=== PATIENT | male | born 1980 | race Hispanic/Latino ===

== ENCOUNTER 2021-06-05 14:23 | Inpatient (IN) | payer SELFPAY ==
[2021-06-05 15:26] LABS: Bilirubin Negative (Negative); Blood, Urine Negative (Negative); Clarity Clear (Clear); Glucose, Urine (Dipstick) Normal (Negative); Ketone, Urine Negative (Negative); Leukocyte Negative Leu/uL (Negative); Nitrite Negative (Negative); Protein, Urine (Dipstick) Negative (Neg-Trace); Urobilinogen Normal mg/dL (Less than 2); pH, Urine 6.5 (5.0-9.0)
[2021-06-05 15:36] LABS: Amphetamine Not Detected (NotDetected); Barbiturates Screen Not Detected (NotDetected); Benzodiazepine Screen Not Detected (NotDetected); Cocaine Metabolite Screen Not Detected (NotDetected); Methadone Not Detected (NotDetected); Methamphetamine Not Detected (NotDetected); Opiate Screen Not Detected (NotDetected); Oxycodone Screen Not Detected (NotDetected); Phencyclidine (PCP) Not Detected (NotDetected); THC/Cannabinoid Screen Not Detected (NotDetected); Tricyclic Screen Not Detected (NotDetected)
[2021-06-05 15:53] LABS: #Basophils 0.1 thou/uL (0.0-0.2); #Eosinphils 0.1 thou/uL (0.0-0.7); #Lymphocytes 2.6 thou/uL (1.20-3.40); #Neutrophils 7.4 thou/uL (1.40-6.50); %Basophils 0.6 % (0.0-1.0); %Eosinophils 0.7 % (0.0-10.0); %Lymphocytes 23.2 % (21.0-51.0); %Monocytes 9.3 % (0.0-10.0); %Neutrophils 66.3 % (42.0-75.0); Hemoglobin 13.8 g/dL (14.0-18.0); Mean Corpuscular HGB CONC 33.9 g/dL (32.0-36.0); Mean Corpuscular Hemoglobin 28.2 pg (27.0-31.0); Mean Corpuscular Volume 83.2 fL (78.0-98.0); Mean Platelet Volume 7.9 fL (7.4-10.4); Platelet Count 290 thou/uL (130-400); Red Blood Cell (RBC) Count 4.89 mill/uL (4.70-6.10); White Blood Cell (WBC) Count 11.1 thou/uL (4.8-10.8)
[2021-06-05] MEDS ORDERED: Lorazepam 1 MG TAB ONE (16:07)
[2021-06-05 16:24] LABS: ALT (SGPT) 23 U/L (8-55); AST (SGOT) 23 U/L (5-34); Acetaminophen Less than 6.0 mcg/mL (10.0-30.0); Alcohol 90 mg/dL (Less than 10); Alkaline Phosphatase 59 U/L (40-110); Anion Gap 16 mmol/L (10-20); BUN (Urea Nitrogen) 10 mg/dL (8.9-20.6); Bilirubin, Total 0.5 mg/dL (0.2-1.2); Calc. Creatinine Clearance 0 mL/min (70-130); Calcium 9.2 mg/dL (7.8-10.44); Carbon Dioxide 25 mmol/L (22-29); Chloride 101 mmol/L (98-107); Globulin 3.5 g/dL (2.4-3.5); Glucose 91 mg/dL (70-105); Potassium 3.8 mmol/L (3.5-5.1); Protein, Total 7.5 g/dL (6.0-8.3); Salicylate Less than 8.0 mg/dL (15.0-30.0); Sodium 138 mmol/L (136-145)
[2021-06-05 18:11] LABS: SARS-CoV-2 NAA Rapid Test DETECTED (NotDetected)
[2021-06-05] MEDS ORDERED: Diazepam 10 MG/2 ML SYRINGE ONE (18:22)
[2021-06-05] MEDS ORDERED: Lorazepam 2 MG/ML VIAL IVPB PRN (18:38)
[2021-06-05] MEDS ORDERED: Ondansetron ODT 4 MG TAB PO PRN (18:38)
[2021-06-05] MEDS ORDERED: Acetaminophen 325 MG TAB PO PRN (18:38)
[2021-06-05] MEDS ORDERED: Lorazepam 1 MG TAB PO PRN (18:38)
[2021-06-05] MEDS ORDERED: Ondansetron PF 4 MG/2 ML Vial IVP PRN (18:38)
[2021-06-05] MEDS ORDERED: Electrolyte Replacement Protocol 1 EACH FS SCH (18:45)
[2021-06-05 23:01] VITALS: BMI 30.9
[2021-06-05] MEDS: Thiamine HCl 200 MG/2 ML VIAL SLOW IVP SCH (23:46)
[2021-06-05] MEDS: Lorazepam 1 MG TAB PO SCH (23:46)
[2021-06-05] MEDS: Famotidine 20 MG TAB PO SCH (23:46)
[2021-06-06] MEDS: Lorazepam 1 MG TAB PO SCH ×4 (05:53→20:11)
[2021-06-06 06:00] LABS: #Basophils 0.1 thou/uL (0.0-0.2); #Eosinphils 0.2 thou/uL (0.0-0.7); #Lymphocytes 2.5 thou/uL (1.20-3.40); #Monocytes 0.8 thou/uL (0.11-0.59); #Neutrophils 4.9 thou/uL (1.40-6.50); %Basophils 0.8 % (0.0-1.0); %Lymphocytes 29.7 % (21.0-51.0); %Monocytes 9.1 % (0.0-10.0); %Neutrophils 58.4 % (42.0-75.0); Hemoglobin 13.6 g/dL (14.0-18.0); Mean Corpuscular HGB CONC 32.1 g/dL (32.0-36.0); Mean Corpuscular Hemoglobin 27.2 pg (27.0-31.0); Mean Corpuscular Volume 84.8 fL (78.0-98.0); Mean Platelet Volume 8.2 fL (7.4-10.4); Platelet Count 272 thou/uL (130-400); RBC Distribution Width 13.2 % (11.5-14.5); Red Blood Cell (RBC) Count 5.01 mill/uL (4.70-6.10); White Blood Cell (WBC) Count 8.4 thou/uL (4.8-10.8)
[2021-06-06 06:04] LABS: Hemoglobin A1c 5.5 % (4.0-6.0)
[2021-06-06 06:29] LABS: ALT (SGPT) 29 U/L (8-55); AST (SGOT) 28 U/L (5-34); Alkaline Phosphatase 56 U/L (40-110); Anion Gap 14 mmol/L (10-20); BUN (Urea Nitrogen) 13 mg/dL (8.9-20.6); Bilirubin, Total 0.8 mg/dL (0.2-1.2); Calc. Creatinine Clearance 149 mL/min (70-130); Calcium 9.5 mg/dL (7.8-10.44); Carbon Dioxide 28 mmol/L (22-29); Cardiac Risk 2.7 (Less than 4.5); Chloride 101 mmol/L (98-107); Cholesterol 207 mg/dl (< 200 Desired); Globulin 3.3 g/dL (2.4-3.5); Glucose 104 mg/dL (70-105); HDL Cholesterol 78 mg/dL (>60 Neg Risk); LDL Cholesterol, Calculated 107 mg/dL; Magnesium 1.9 mg/dL (1.6-2.6); Phosphorus 3.8 mg/dL (2.3-4.7); Potassium 4.5 mmol/L (3.5-5.1); Protein, Total 7.3 g/dL (6.0-8.3); Sodium 138 mmol/L (136-145); Triglycerides 110 mg/dL (Less than 150)
[2021-06-06 06:42] LABS: Syphilis Antibody Nonreactive (Nonreactive); Syphilis Antibody Index 0.05 S/CO (<1.00 Non-Reactive)
[2021-06-06 06:43] LABS: Hep C IgG Ab Non-Reactive (NonReactive); Hep C Index 0.07 S/CO (0-0.79); Thyroid Stimulating Hormone 1.7677 uIU/mL (0.35-4.94)
[2021-06-06] MEDS ORDERED: Potassium Chloride 20 MEQ TAB PO SCH (06:45)
[2021-06-06] MEDS ORDERED: Magnesium 2 GM/50 ML 2 GM in Premix Bag 1 BAG IVPB SCH (07:00)
[2021-06-06] MEDS: Multivit, Therapeutic 1 TAB PO SCH (08:59)
[2021-06-06] MEDS: Folic Acid 1 MG TAB PO SCH (08:59)
[2021-06-06] MEDS: Gabapentin 300 MG CAP PO SCH ×3 (08:59→20:12)
[2021-06-06] MEDS: Famotidine 20 MG TAB PO SCH ×2 (08:59→20:11)
[2021-06-06] MEDS ORDERED: Lorazepam 1 MG TAB PO PRN (18:40)
[2021-06-06] MEDS: Thiamine HCl 200 MG/2 ML VIAL SLOW IVP SCH (20:24)
[2021-06-07] MEDS: Lorazepam 1 MG TAB PO SCH ×2 (02:57→09:05)
[2021-06-07 04:53] LABS: #Basophils 0.1 thou/uL (0.0-0.2); #Eosinphils 0.2 thou/uL (0.0-0.7); #Lymphocytes 2.6 thou/uL (1.20-3.40); #Monocytes 0.8 thou/uL (0.11-0.59); #Neutrophils 4.9 thou/uL (1.40-6.50); %Basophils 0.9 % (0.0-1.0); %Eosinophils 2.2 % (0.0-10.0); %Lymphocytes 30.2 % (21.0-51.0); %Monocytes 8.9 % (0.0-10.0); %Neutrophils 57.8 % (42.0-75.0); Hemoglobin 13.6 g/dL (14.0-18.0); Mean Corpuscular HGB CONC 33.9 g/dL (32.0-36.0); Mean Corpuscular Hemoglobin 28.3 pg (27.0-31.0); Mean Corpuscular Volume 83.6 fL (78.0-98.0); Platelet Count 271 thou/uL (130-400); RBC Distribution Width 13.1 % (11.5-14.5); Red Blood Cell (RBC) Count 4.81 mill/uL (4.70-6.10); White Blood Cell (WBC) Count 8.5 thou/uL (4.8-10.8)
[2021-06-07 05:16] LABS: ALT (SGPT) 57 U/L (8-55); AST (SGOT) 56 U/L (5-34); Albumin 3.8 g/dL (3.5-5.0); Alkaline Phosphatase 59 U/L (40-110); Anion Gap 11 mmol/L (10-20); BUN (Urea Nitrogen) 14 mg/dL (8.9-20.6); Bilirubin, Total 0.5 mg/dL (0.2-1.2); Calc. Creatinine Clearance 141 mL/min (70-130); Calcium 8.9 mg/dL (7.8-10.44); Carbon Dioxide 27 mmol/L (22-29); Chloride 102 mmol/L (98-107); Globulin 3.1 g/dL (2.4-3.5); Glucose 104 mg/dL (70-105); Magnesium 2.2 mg/dL (1.6-2.6); Phosphorus 4.4 mg/dL (2.3-4.7); Potassium 4.3 mmol/L (3.5-5.1); Protein, Total 6.9 g/dL (6.0-8.3); Sodium 136 mmol/L (136-145)
[2021-06-07 05:36] LABS: HIV (1/2) Antibody/Antigen Non-Reactive (NonReactive); HIV 1/2 INDEX 0.09 S/CO (<1.00)
[2021-06-07] MEDS: Multivit, Therapeutic 1 TAB PO SCH (09:00)
[2021-06-07] MEDS: Folic Acid 1 MG TAB PO SCH (09:00)
[2021-06-07] MEDS: Gabapentin 300 MG CAP PO SCH ×3 (09:00→21:42)
[2021-06-07] MEDS: Famotidine 20 MG TAB PO SCH ×2 (09:00→21:36)
[2021-06-07] MEDS ORDERED: FLU VACC QS2021-22(6MOS UP)/PF 60 MCG/0.5 ML SYRINGE IM ONE (09:00)
[2021-06-07] MEDS: chlordiazePOXIDE HCl 25 MG CAP PO SCH ×3 (13:17→21:36)
[2021-06-07] MEDS ORDERED: Lorazepam 1 MG TAB PO PRN (18:40)
[2021-06-07] MEDS ORDERED: Lorazepam 0.5 MG TAB PO SCH (20:00)
[2021-06-07] MEDS ORDERED: Melatonin 3 MG TAB PO SCH (21:00)
[2021-06-07] MEDS: Thiamine HCl 200 MG/2 ML VIAL SLOW IVP SCH (21:36)
[2021-06-08 06:07] LABS: #Basophils 0.1 thou/uL (0.0-0.2); #Eosinphils 0.2 thou/uL (0.0-0.7); #Lymphocytes 2.7 thou/uL (1.20-3.40); #Monocytes 0.8 thou/uL (0.11-0.59); #Neutrophils 4.7 thou/uL (1.40-6.50); %Basophils 1.5 % (0.0-1.0); %Eosinophils 2.4 % (0.0-10.0); %Lymphocytes 31.4 % (21.0-51.0); %Neutrophils 55.6 % (42.0-75.0); Hemoglobin 13.6 g/dL (14.0-18.0); Mean Corpuscular HGB CONC 31.8 g/dL (32.0-36.0); Mean Corpuscular Hemoglobin 27.3 pg (27.0-31.0); Mean Corpuscular Volume 85.6 fL (78.0-98.0); Mean Platelet Volume 7.9 fL (7.4-10.4); Platelet Count 278 thou/uL (130-400); RBC Distribution Width 13.4 % (11.5-14.5); Red Blood Cell (RBC) Count 4.98 mill/uL (4.70-6.10); White Blood Cell (WBC) Count 8.5 thou/uL (4.8-10.8)
[2021-06-08 06:25] LABS: ALT (SGPT) 84 U/L (8-55); AST (SGOT) 64 U/L (5-34); Albumin 3.9 g/dL (3.5-5.0); Alkaline Phosphatase 53 U/L (40-110); Anion Gap 12 mmol/L (10-20); BUN (Urea Nitrogen) 16 mg/dL (8.9-20.6); Bilirubin, Total 0.5 mg/dL (0.2-1.2); Calc. Creatinine Clearance 132 mL/min (70-130); Carbon Dioxide 27 mmol/L (22-29); Chloride 105 mmol/L (98-107); Glucose 105 mg/dL (70-105); Magnesium 2.2 mg/dL (1.6-2.6); Phosphorus 4.8 mg/dL (2.3-4.7); Potassium 4.5 mmol/L (3.5-5.1); Protein, Total 6.9 g/dL (6.0-8.3); Sodium 139 mmol/L (136-145)
[2021-06-08 08:16] LABS: INR-International Normal Ratio 0.9; PTT 31.4 sec (22.9-36.1); Prothrombin Time 12.5 sec (12.0-14.7)
[2021-06-08] MEDS ORDERED: FLU VACC QS2021-22(6MOS UP)/PF 60 MCG/0.5 ML SYRINGE IM ONE (09:00)
[2021-06-08 09:17] LABS: HBCM Index 0.08 S/CO (0-0.79); Hep B Core Total Ab Non-Reactive (NonReactive); Hep B Surf Ag Non-Reactive S/CO (NonReactive); Hepatitis B Core IgM Abs Non-Reactive (NonReactive)
[2021-06-08] MEDS: Multivit, Therapeutic 1 TAB PO SCH (09:55)
[2021-06-08] MEDS: Famotidine 20 MG TAB PO SCH (09:55)
[2021-06-08] MEDS: Folic Acid 1 MG TAB PO SCH (09:55)
[2021-06-08] MEDS: Gabapentin 300 MG CAP PO SCH ×3 (09:55→21:35)
[2021-06-08] MEDS: Thiamine 100 MG TAB PO SCH (09:55)
[2021-06-08 10:09] LABS: HBSAB Concentration 2086.24 mIU/mL; Hep B Surf AB Reactive (NonReactive)
[2021-06-08] MEDS: chlordiazePOXIDE HCl 25 MG CAP PO SCH ×4 (10:15→22:00)
[2021-06-08 10:16] LABS: Hep B Surface AG-Rflx Sendout Negative (Negative); Hepatitis B Core Total Negative (Negative); Hepatitis B Surface AB-Sendout Reactive (.)
[2021-06-08] MEDS ORDERED: Lorazepam 1 MG TAB PO SCH (16:15)
[2021-06-08] MEDS ORDERED: Lorazepam 0.5 MG TAB PO PRN (18:40)
[2021-06-08] MEDS: Melatonin 3 MG TAB PO SCH (21:36)
[2021-06-09 06:16] LABS: #Basophils 0.1 thou/uL (0.0-0.2); #Eosinphils 0.3 thou/uL (0.0-0.7); #Lymphocytes 2.8 thou/uL (1.20-3.40); #Monocytes 0.9 thou/uL (0.11-0.59); #Neutrophils 4.9 thou/uL (1.40-6.50); %Basophils 1.1 % (0.0-1.0); %Eosinophils 3.4 % (0.0-10.0); %Lymphocytes 30.6 % (21.0-51.0); %Neutrophils 54.9 % (42.0-75.0); Hemoglobin 13.6 g/dL (14.0-18.0); Mean Corpuscular HGB CONC 32.7 g/dL (32.0-36.0); Mean Corpuscular Hemoglobin 27.8 pg (27.0-31.0); Mean Corpuscular Volume 85.1 fL (78.0-98.0); Mean Platelet Volume 8.1 fL (7.4-10.4); Platelet Count 290 thou/uL (130-400); RBC Distribution Width 13.4 % (11.5-14.5)
[2021-06-09 07:07] LABS: ALT (SGPT) 97 U/L (8-55); AST (SGOT) 60 U/L (5-34); Albumin 3.9 g/dL (3.5-5.0); Alkaline Phosphatase 50 U/L (40-110); Anion Gap 14 mmol/L (10-20); BUN (Urea Nitrogen) 18 mg/dL (8.9-20.6); Bilirubin, Total 0.4 mg/dL (0.2-1.2); Calc. Creatinine Clearance 128 mL/min (70-130); Calcium 9.1 mg/dL (7.8-10.44); Carbon Dioxide 22 mmol/L (22-29); Chloride 104 mmol/L (98-107); Globulin 3.1 g/dL (2.4-3.5); Glucose 104 mg/dL (70-105); Magnesium 2.2 mg/dL (1.6-2.6); Phosphorus 4.7 mg/dL (2.3-4.7); Potassium 4.4 mmol/L (3.5-5.1); Sodium 136 mmol/L (136-145)
[2021-06-09] MEDS: Gabapentin 300 MG CAP PO SCH ×3 (08:13→21:43)
[2021-06-09] MEDS: Multivit, Therapeutic 1 TAB PO SCH (08:13)
[2021-06-09] MEDS: Folic Acid 1 MG TAB PO SCH (08:13)
[2021-06-09] MEDS: hydrOXYzine 25 MG TAB PO PRN (08:13)
[2021-06-09] MEDS: Lactated Ringer's 1,000 ML IV SCH ×2 (08:14→16:30)
[2021-06-09] MEDS: Thiamine 100 MG TAB PO SCH (08:14)
[2021-06-09] MEDS ORDERED: Polyethylene Glycol 3350 17 GM Packet PO PRN (08:52)
[2021-06-09] MEDS: chlordiazePOXIDE HCl 25 MG CAP PO SCH ×4 (09:44→21:43)
[2021-06-09] MEDS: Senokot S 8.6-50 MG TAB PO SCH ×2 (09:48→21:45)
[2021-06-09] MEDS: OLANZapine 5 MG TAB PO SCH (10:50)
[2021-06-09] MEDS: Melatonin 3 MG TAB PO SCH (21:44)
[2021-06-10] MEDS: Lactated Ringer's 1,000 ML IV SCH ×2 (00:40→10:21)
[2021-06-10 05:47] LABS: #Basophils 0.1 thou/uL (0.0-0.2); #Eosinphils 0.2 thou/uL (0.0-0.7); #Lymphocytes 2.6 thou/uL (1.20-3.40); #Monocytes 0.7 thou/uL (0.11-0.59); #Neutrophils 4.9 thou/uL (1.40-6.50); %Basophils 1.2 % (0.0-1.0); %Eosinophils 2.2 % (0.0-10.0); %Lymphocytes 30.6 % (21.0-51.0); %Monocytes 8.7 % (0.0-10.0); %Neutrophils 57.2 % (42.0-75.0); Hemoglobin 13.9 g/dL (14.0-18.0); Mean Corpuscular HGB CONC 32.3 g/dL (32.0-36.0); Mean Corpuscular Hemoglobin 27.6 pg (27.0-31.0); Mean Corpuscular Volume 85.3 fL (78.0-98.0); Platelet Count 306 thou/uL (130-400); RBC Distribution Width 13.6 % (11.5-14.5); Red Blood Cell (RBC) Count 5.06 mill/uL (4.70-6.10); White Blood Cell (WBC) Count 8.6 thou/uL (4.8-10.8)
[2021-06-10 06:08] LABS: ALT (SGPT) 100 U/L (8-55); AST (SGOT) 50 U/L (5-34); Albumin 3.8 g/dL (3.5-5.0); Alkaline Phosphatase 52 U/L (40-110); Anion Gap 12 mmol/L (10-20); BUN (Urea Nitrogen) 19 mg/dL (8.9-20.6); Bilirubin, Total 0.3 mg/dL (0.2-1.2); Calc. Creatinine Clearance 141 mL/min (70-130); Calcium 9.4 mg/dL (7.8-10.44); Carbon Dioxide 23 mmol/L (22-29); Chloride 106 mmol/L (98-107); Globulin 3.1 g/dL (2.4-3.5); Glucose 111 mg/dL (70-105); Iron 45 ug/dL (65-175); Iron 46 ug/dL (65-175); Iron Binding Capacity, Total 311 mcg/dL (261-462); Iron Binding Capacity, Total 320 mcg/dL (261-462); Magnesium 2.1 mg/dL (1.6-2.6); Phosphorus 4.5 mg/dL (2.3-4.7); Potassium 4.3 mmol/L (3.5-5.1); Protein, Total 6.9 g/dL (6.0-8.3); Sodium 137 mmol/L (136-145)
[2021-06-10] MEDS: Gabapentin 300 MG CAP PO SCH ×3 (10:17→20:45)
[2021-06-10] MEDS: Multivit, Therapeutic 1 TAB PO SCH (10:17)
[2021-06-10] MEDS: Folic Acid 1 MG TAB PO SCH (10:17)
[2021-06-10] MEDS: Senokot S 8.6-50 MG TAB PO SCH ×2 (10:17→20:45)
[2021-06-10] MEDS: OLANZapine 5 MG TAB PO SCH (10:18)
[2021-06-10] MEDS: Thiamine 100 MG TAB PO SCH (10:21)
[2021-06-10] MEDS: chlordiazePOXIDE HCl 25 MG CAP PO SCH ×2 (10:21→14:10)
[2021-06-10] MEDS: Melatonin 3 MG TAB PO SCH (23:57)
[2021-06-11 06:39] LABS: #Basophils 0.1 thou/uL (0.0-0.2); #Eosinphils 0.2 thou/uL (0.0-0.7); #Lymphocytes 2.3 thou/uL (1.20-3.40); #Monocytes 0.9 thou/uL (0.11-0.59); #Neutrophils 4.3 thou/uL (1.40-6.50); %Basophils 0.9 % (0.0-1.0); %Eosinophils 2.2 % (0.0-10.0); %Lymphocytes 29.5 % (21.0-51.0); %Monocytes 11.7 % (0.0-10.0); %Neutrophils 55.7 % (42.0-75.0); Mean Corpuscular HGB CONC 32.6 g/dL (32.0-36.0); Mean Corpuscular Hemoglobin 28.2 pg (27.0-31.0); Mean Corpuscular Volume 86.6 fL (78.0-98.0); Platelet Count 301 thou/uL (130-400); RBC Distribution Width 13.5 % (11.5-14.5); Red Blood Cell (RBC) Count 4.96 mill/uL (4.70-6.10); White Blood Cell (WBC) Count 7.7 thou/uL (4.8-10.8)
[2021-06-11 06:59] LABS: ALT (SGPT) 85 U/L (8-55); AST (SGOT) 34 U/L (5-34); Alkaline Phosphatase 52 U/L (40-110); Anion Gap 11 mmol/L (10-20); BUN (Urea Nitrogen) 12 mg/dL (8.9-20.6); Bilirubin, Total 0.3 mg/dL (0.2-1.2); Calc. Creatinine Clearance 142 mL/min (70-130); Calcium 8.9 mg/dL (7.8-10.44); Carbon Dioxide 27 mmol/L (22-29); Chloride 104 mmol/L (98-107); Globulin 2.9 g/dL (2.4-3.5); Glucose 101 mg/dL (70-105); Phosphorus 3.9 mg/dL (2.3-4.7); Potassium 4.4 mmol/L (3.5-5.1); Protein, Total 6.9 g/dL (6.0-8.3); Sodium 138 mmol/L (136-145)
[2021-06-11] MEDS: Gabapentin 300 MG CAP PO SCH ×3 (07:59→21:18)
[2021-06-11] MEDS: Multivit, Therapeutic 1 TAB PO SCH (07:59)
[2021-06-11] MEDS: Senokot S 8.6-50 MG TAB PO SCH ×2 (07:59→21:18)
[2021-06-11] MEDS: Thiamine 100 MG TAB PO SCH (07:59)
[2021-06-11] MEDS: Folic Acid 1 MG TAB PO SCH (08:00)
[2021-06-11] MEDS ORDERED: Magnesium 2 GM/50 ML 2 GM in Premix Bag 1 BAG IVPB SCH (08:00)
[2021-06-11] MEDS ORDERED: Lorazepam 0.5 MG TAB PO SCH (10:30)
[2021-06-11] MEDS: chlordiazePOXIDE HCl 25 MG CAP PO SCH ×3 (10:30→21:18)
[2021-06-11] MEDS: Fioricet 325/50/40 mg Tablet PO PRN (12:18)
[2021-06-11] MEDS: OLANZapine 5 MG TAB PO SCH (12:20)
[2021-06-11] MEDS: Lorazepam 0.5 MG TAB PO PRN (21:19)
[2021-06-11] MEDS: Melatonin 3 MG TAB PO SCH (22:50)
[2021-06-12 06:13] LABS: #Basophils 0.1 thou/uL (0.0-0.2); #Eosinphils 0.2 thou/uL (0.0-0.7); #Lymphocytes 2.8 thou/uL (1.20-3.40); #Monocytes 1.2 thou/uL (0.11-0.59); #Neutrophils 4.6 thou/uL (1.40-6.50); %Basophils 0.6 % (0.0-1.0); %Lymphocytes 32.2 % (21.0-51.0); %Monocytes 13.1 % (0.0-10.0); %Neutrophils 52.2 % (42.0-75.0); Hemoglobin 13.6 g/dL (14.0-18.0); Mean Corpuscular Hemoglobin 28.5 pg (27.0-31.0); Mean Corpuscular Volume 86.6 fL (78.0-98.0); Mean Platelet Volume 7.9 fL (7.4-10.4); Platelet Count 302 thou/uL (130-400); RBC Distribution Width 13.3 % (11.5-14.5); Red Blood Cell (RBC) Count 4.76 mill/uL (4.70-6.10); White Blood Cell (WBC) Count 8.8 thou/uL (4.8-10.8)
[2021-06-12 06:37] LABS: ALT (SGPT) 72 U/L (8-55); AST (SGOT) 28 U/L (5-34); Albumin 3.8 g/dL (3.5-5.0); Alkaline Phosphatase 47 U/L (40-110); Anion Gap 11 mmol/L (10-20); BUN (Urea Nitrogen) 12 mg/dL (8.9-20.6); Bilirubin, Total 0.3 mg/dL (0.2-1.2); Calc. Creatinine Clearance 124 mL/min (70-130); Carbon Dioxide 29 mmol/L (22-29); Chloride 104 mmol/L (98-107); Globulin 2.9 g/dL (2.4-3.5); Glucose 104 mg/dL (70-105); Magnesium 2.1 mg/dL (1.6-2.6); Phosphorus 4.5 mg/dL (2.3-4.7); Potassium 4.5 mmol/L (3.5-5.1); Protein, Total 6.7 g/dL (6.0-8.3); Sodium 139 mmol/L (136-145)
[2021-06-12] MEDS: Gabapentin 300 MG CAP PO SCH ×3 (09:03→21:12)
[2021-06-12] MEDS: Senokot S 8.6-50 MG TAB PO SCH ×3 (09:03→21:25)
[2021-06-12] MEDS: Folic Acid 1 MG TAB PO SCH (09:04)
[2021-06-12] MEDS: Multivit, Therapeutic 1 TAB PO SCH (09:04)
[2021-06-12] MEDS: OLANZapine 5 MG TAB PO SCH (09:05)
[2021-06-12] MEDS: Lorazepam 0.5 MG TAB PO PRN ×3 (09:14→22:04)
[2021-06-12] MEDS: chlordiazePOXIDE HCl 25 MG CAP PO SCH ×3 (10:46→21:10)
[2021-06-12] MEDS: Thiamine 100 MG TAB PO SCH (10:46)
[2021-06-12 14:24] LABS: SARS-CoV-2 NAA Rapid Test Not Detected (NotDetected)
[2021-06-12] MEDS: Fioricet 325/50/40 mg Tablet PO PRN (14:55)
[2021-06-12] MEDS: hydrOXYzine 25 MG TAB PO PRN (15:47)
[2021-06-12] MEDS: Melatonin 3 MG TAB PO SCH (21:11)
[2021-06-13] MEDS: Lorazepam 0.5 MG TAB PO PRN ×3 (08:34→20:53)
[2021-06-13] MEDS: Folic Acid 1 MG TAB PO SCH (09:18)
[2021-06-13] MEDS: Gabapentin 300 MG CAP PO SCH ×3 (09:18→20:50)
[2021-06-13] MEDS: Thiamine 100 MG TAB PO SCH (09:19)
[2021-06-13] MEDS: Multivit, Therapeutic 1 TAB PO SCH (09:19)
[2021-06-13] MEDS: Senokot S 8.6-50 MG TAB PO SCH ×2 (09:19→20:51)
[2021-06-13] MEDS: chlordiazePOXIDE HCl 25 MG CAP PO SCH ×2 (09:19→21:11)
[2021-06-13] MEDS: Fioricet 325/50/40 mg Tablet PO PRN ×2 (09:21→14:50)
[2021-06-13] MEDS: Melatonin 3 MG TAB PO SCH (20:51)
[2021-06-14 08:16] VITALS: BP 124/76; TEMP 98.2
[2021-06-14] MEDS: Lorazepam 0.5 MG TAB PO PRN ×2 (08:22→15:18)
[2021-06-14] MEDS: Senokot S 8.6-50 MG TAB PO SCH (08:22)
[2021-06-14] MEDS: Gabapentin 300 MG CAP PO SCH ×2 (08:23→15:18)
[2021-06-14] MEDS: Folic Acid 1 MG TAB PO SCH (08:23)
[2021-06-14] MEDS: Multivit, Therapeutic 1 TAB PO SCH (08:23)
[2021-06-14] MEDS: chlordiazePOXIDE HCl 25 MG CAP PO SCH (09:47)
[2021-06-14] MEDS: Thiamine 100 MG TAB PO SCH (09:47)
[2021-06-14] MEDS ORDERED: Lorazepam 2 MG/ML VIAL SLOW IVP PRN (15:41)
[2021-06-14] MEDS: Fioricet 325/50/40 mg Tablet PO PRN (16:39)
== END 2021-06-14 18:04 | DRG 896 ==
LOC: ERS 14:23 → SUATTDRO 14:23 → ERHOLD 18:32 → 2SW 22:36 → T4-B 06-07 20:04
PROVIDERS: ADMIT Family Medicine; ATTEND Family Medicine
PROC: HZ2ZZZZ Detoxification Services for Substance Abuse Treatment (ICD-10-PCS; principal; 2021-06-05)
PROC: 8E0ZXY6 Isolation (ICD-10-PCS; 2021-06-05)
DX: F10.239 Alcohol dependence with withdrawal, unspecified (principal); U07.1 COVID-19; R45.851 Suicidal ideations; Y90.4 Blood alcohol level of 80-99 mg/100 ml; F14.10 Cocaine abuse, uncomplicated; F10.280 Alcohol dependence with alcohol-induced anxiety disorder; E66.9 Obesity, unspecified; K76.0 Fatty (change of) liver, not elsewhere classified; R74.01 Elevation of levels of liver transaminase levels; F31.9 Bipolar disorder, unspecified; K59.00 Constipation, unspecified; Z59.00 Homelessness unspecified; Z79.899 Other long term (current) drug therapy; Z81.1 Family history of alcohol abuse and dependence; Z91.51 Personal history of suicidal behavior; Z68.30 Body mass index [BMI] 30.0-30.9, adult
CPT/HCPCS: 0240U; 36415; 70450; 71045; 76705; 80053; 80061; 80306; 80307; 81003; 82550; 82728; 83036; 83540; 83550; 83735; 84100; 84443; 85025; 85610; 85730; 86704; 86705; 86706; 86707; 86780; 86803; 87340; 87350; 87389; 96374; J3360; J3411; J3475; J7120; U0002